=== PATIENT | female | born 1995 | race Caucasian/White ===

== ENCOUNTER 2021-11-23 18:32 | Observation (INO) | payer OTHER ==
[~2021-11-23] VITALS: Ht 149.9 cm; Wt 90.8 kg
[2021-11-23] MEDS ORDERED: SODIUM CHLORIDE 0.9% 1,000 ML IV ONE (20:30)
[2021-11-23] MEDS ORDERED: ONDANSETRON HCL 4MG/2ML INJ IV ONE (20:30)
[2021-11-23 20:54] LABS: HEMOGLOBIN. 11.3 g/dL (12.0-16.0); MEAN CORPUSCULAR HEMOGLOBIN 27.4 pg (28.0-32.0); MEAN PLATELET VOLUME 6.5 fl (7.4-10.4); PLATELET 354 x1000/uL (130-400); RED BLOOD CELL COUNT 4.12 mill/uL (4.2-5.4); RED CELL DISTRIBUTION WIDTH 13.7 % (11.6-14.6)
[2021-11-23 21:08] LABS: CHLORIDE 102 mEq/L (98-107)
[2021-11-23 21:16] LABS: PHOSPHORUS 3.6 mg/dL (2.5-4.9)
[2021-11-23 21:23] LABS: PLATELET ESTIMATE NORMAL
[2021-11-23 21:31] LABS: B-HCG QUANTITATIVE 1618 mIU/mL (<3)
[2021-11-23 21:34] LABS: CLARITY URINE CLOUDY (CLEAR); COLOR URINE YELLOW (YELLOW); KETONES URINE 3+ (NEGATIVE); LEUKOCYTE ESTERASE URINE 2+ (NEGATIVE); NITRITE URINE POSITIVE (NEGATIVE); OCCULT BLOOD URINE NEGATIVE (NEGATIVE); PH URINE 6.5 (4.5-8.0); PROTEIN URINE NEGATIVE (NEGATIVE); SPECIFIC GRAVITY URINE 1.023 (1.005-1.030); UROBILINOGEN URINE 0.2 E.U./dL (0.2-1.0)
[2021-11-23] MEDS ORDERED: CEFTRIAXONE 1 G PREMIX 50 ML IV ONE (22:00)
[2021-11-23] MEDS ORDERED: CEFTRIAXONE 1 G PREMIX 50 ML IV NR (23:45)
[2021-11-24] VITALS: BP 118/67
[2021-11-24] MEDS ORDERED: CEFP200T13 MT ×2 (01:30)
[2021-11-24] MEDS ORDERED: TOPUD PO ×2 (01:31)
[2021-11-24] MEDS ORDERED: AZIT250T MT (05:51)
== END 2021-11-24 04:23 | disposition home or self-care (01) ==
LOC: ER 18:32 → 8 EST A/PP 11-24 02:44
PROVIDERS: ADMIT Obstetrics & Gynecology; ATTEND Obstetrics & Gynecology
DX: O23.43 Unspecified infection of urinary tract in pregnancy, third trimester (principal); O99.513 Diseases of the respiratory system complicating pregnancy, third trimester; J06.9 Acute upper respiratory infection, unspecified; O26.893 Other specified pregnancy related conditions, third trimester; R42 Dizziness and giddiness; R06.02 Shortness of breath; R07.9 Chest pain, unspecified; R50.9 Fever, unspecified; Z3A.28 28 weeks gestation of pregnancy
CPT/HCPCS: 36415; 59025; 71045; 76805; 76815; 76818; 80053; 81003; 83605; 83690; 83735; 83880; 84100; 84484; 84702; 85025; 86850; 86900; 86901; 87426; 87804; 93005; 96361; 96365; 99285; G0378; J0696; J2405; J7030; 99281

== ENCOUNTER 2023-04-09 20:49 | Emergency (ER) | payer MEDICAID, OTHER ==
[~2023-04-09] VITALS: Ht 149.9 cm; Wt 102.2 kg
[~2023-04-09 20:49] MED LIST: AZIT250T MT
[2023-04-09 21:34] VITALS: O2SAT 98
[2023-04-09] MEDS ORDERED: ACET-2708 MT (23:46)
[2023-04-10 00:06] VITALS: BP 160/101; PULSE 95; RESP 16; TEMP 98.2
== END 2023-04-10 00:08 | disposition home or self-care (01) ==
LOC: ER 20:49
DX: S90.32XA Contusion of left foot, initial encounter (principal); W22.8XXA Striking against or struck by other objects, initial encounter; Y93.89 Activity, other specified; Y92.89 Other specified places as the place of occurrence of the external cause; Y99.8 Other external cause status
CPT/HCPCS: 73630; 99283